=== PATIENT | female | born 1965 | race African-American/Black ===

== ENCOUNTER 2021-02-16 21:22 | Emergency (ER) | payer MEDICAID ==
[~2021-02-16] VITALS: Ht 162.6 cm; Wt 94.8 kg
[~2021-02-16 21:22] MED LIST: AMLO5TAB88; TRIA1CAP2
[2021-02-16] MEDS ORDERED: HYDROCODONE/ACETAMINOPHEN 5/325MG TABLET PO ONE (22:30)
[2021-02-16 22:31] VITALS: BP 187/90
== END 2021-02-16 22:38 | disposition home or self-care (01) ==
LOC: ER 21:22
DX: M25.562 Pain in left knee (principal); I12.9 Hypertensive chronic kidney disease with stage 1 through stage 4 chronic kidney disease, or unspecified chronic kidney disease; N18.2 Chronic kidney disease, stage 2 (mild); Z79.899 Other long term (current) drug therapy; Z90.710 Acquired absence of both cervix and uterus; Z98.890 Other specified postprocedural states
CPT/HCPCS: 99283